=== PATIENT | male | born 1975 | race Caucasian/White ===

== ENCOUNTER 2020-07-17 04:50 | Emergency (ER) | payer MEDICAID, OTHER ==
[~2020-07-17] VITALS: Ht 170.2 cm; Wt 59.0 kg
--- NOTE | 2020-07-17 05:00 | NUR ---
ERMD AT BEDSIDE FOR MEDICAL EVALUATION.
--- NOTE | 2020-07-17 05:02 | NUR ---
45 YR OLD MALE PRESENTED TO THE ER WITH CC OF LEFT TESTICULAR PAIN. PT IS AOX4. PT STATES 8/10 NON-RADIATING SHARP LEFT TESTICULAR PAIN. PT STATES PAIN STARTED EARLIER TODAY WHEN LIFTING SOMETHING. PT LEFT TESTICLE IS SLIGHTLY RED AND SLIGHTLY SWOLLEN. PT DENIES OTHER MEDICAL COMPLAINTS. BED LOCKED IN LOWEST POSITION WITH 1 SIDE RAIL UP. WILL CONTINUE TO MONITOR. HISTORY- NONE ALLERGIES- NONE
[2020-07-17] MEDS ORDERED: KETOROLAC 30 MG/ML VIAL IM ONE (05:05)
--- NOTE | 2020-07-17 05:22 | NUR ---
40 ML OF CLEAR YELLOW URINE COLLECTED.
--- NOTE | 2020-07-17 06:09 | NUR ---
PT FOUND AWAKE IN SEMI-KING'S POSITION IN BED. PT STATE 4/10 LEFT TESTICULAR PAIN. PT DENIES OTHER MEDICAL COMPLAINTS. BED LOCKED IN LOWEST POSITION WITH 1 SIDE RAIL UP.
[2020-07-17] MEDS ORDERED: NAPR-54 PO (06:45)
[2020-07-17 07:11] VITALS: BP 109/75
== END 2020-07-17 07:11 | disposition home or self-care (01) ==
LOC: MED 04:50
DX: N43.3 Hydrocele, unspecified (principal); N50.812 Left testicular pain; Z79.899 Other long term (current) drug therapy
CPT/HCPCS: 36415; 76870; 96372; 99284; J1885; 81002; 87491